=== PATIENT | male | born 1990 | race Caucasian/White ===

== ENCOUNTER 2017-06-04 19:49 | Emergency (ER) | payer OTHER ==
[~2017-06-04] VITALS: Ht 177.8 cm; Wt 77.1 kg
[2017-06-04] MEDS ORDERED: NO MEDICATIONS (20:18)
== END 2017-06-04 22:17 | disposition home or self-care (01) ==
LOC: SED 19:49
DX: S90.561A Insect bite (nonvenomous), right ankle, initial encounter (principal); Z90.89 Acquired absence of other organs; Z88.5 Allergy status to narcotic agent; Z88.1 Allergy status to other antibiotic agents; W57.XXXA Bitten or stung by nonvenomous insect and other nonvenomous arthropods, initial encounter
CPT/HCPCS: 99282